=== PATIENT | female | born 1965 | race Caucasian/White ===

== ENCOUNTER 2019-04-12 21:38 | Emergency (ER) | payer BC, MEDICAID ==
[~2019-04-12] VITALS: Ht 160 cm; Wt 54.4 kg
[2019-04-12 22:29] LABS: Basophils # (auto) 0 uL; Eosinophils # (auto) 0 uL; Hemoglobin 10.2 g/dL (12.2-16.2); Lymphocytes # (auto) 1.1 uL; Monocytes # (auto) 0.2 uL; Neutrophils # (auto) 2.2 uL; Nucleated Red Blood Cells % 0.1 %; White Blood Cell 3.5 10^3/uL (4.4-10.8)
[2019-04-12 22:32] LABS: Basophils % (auto) 0.9 % (0.0-2.0); Eosinophils % (auto) 0.8 % (0.0-7.0); Hematocrit 34.6 % (36.0-46.0); Lymphocytes % (auto) 30.8 % (10.0-50.0); Mean Corpuscular Hemoglobin 23.1 pg (28.0-32.0); Mean Corpuscular Hgb Conc. 29.5 g/dL (32.0-36.0); Mean Corpuscular Volume 78.4 fL (80.0-100.0); Monocytes % (auto) 4.4 % (0.0-12.0); Neutrophils % (auto) 63.1 % (37.0-80.0); Platelet Count (auto) 330 10^3/uL (140-450); Red Blood Cells 4.42 10^6/uL (4.0-5.20)
[2019-04-12 22:42] LABS: Red Cell Distribution Width 31.1 % (11.8-14.3)
[2019-04-12 22:44] LABS: Urine Bacteria MANY /hpf (None Seen); Urine Blood Negative /uL (Negative); Urine Specific Gravity 1.014 (1.001-1.035); Urine WBC 1 /hpf (0 - 5)
[2019-04-12 22:47] LABS: Albumin 2.9 g/dL (3.4-5.0); Calcium 7.2 mg/dL (8.5-10.1); Potassium 3.9 mmol/L (3.5-5.1)
[2019-04-12 22:48] LABS: BUN/Creatinine Ratio 17.3
[2019-04-12 22:52] LABS: Bilirubin, Total 0.3 mg/dL (0.2-1.0); Total Protein 6.3 g/dL (6.4-8.2)
[2019-04-12 22:55] LABS: Alcohol, Urine < 3.0 mg/dL (0-5); Amphetamine Screen, Urine NEGATIVE (NEGATIVE); Barbiturate Scree,Urine NEGATIVE (NEGATIVE); Benzodiazephine Screen, Urine POSITIVE (NEGATIVE); Cannabinoid Screen, Urine POSITIVE (NEGATIVE); Cocaine Screen, Urine NEGATIVE (NEGATIVE); Opiate Scree,Urine NEGATIVE (NEGATIVE); Phencyclidine Screen, Urine NEGATIVE (NEGATIVE)
[2019-04-13] MEDS ORDERED: LORazepam 0.5 MG TAB PO ONE (04:00)
[2019-04-13] MEDS ORDERED: MORPHINE SULF INJ 2 MG/ML SYRINGE 1ML IV ONE (04:00)
[2019-04-13] MEDS ORDERED: SODIUM CHLORIDE 0.9% 1,000 ML IV ONE (04:00)
[2019-04-13 04:55] VITALS: BP 107/71
[2019-04-13 04:55] LABS: Lipase 61 U/L (73-393)
[2019-04-13] MEDS ORDERED: CALCIUM ACETATE 667 MG CAP PO ONE (06:00)
== END 2019-04-13 07:44 | disposition home or self-care (01) ==
LOC: EDBD 21:38 → ER 21:44
DX: F41.9 Anxiety disorder, unspecified (principal); K59.00 Constipation, unspecified; Z90.710 Acquired absence of both cervix and uterus
CPT/HCPCS: 36415; 74176; 80053; 80307; 81001; 83690; 84484; 85025; 93005; 94761; 96374; 99284; J2270; J7030

== ENCOUNTER 2019-06-29 20:43 | Emergency (ER) | payer BC, MEDICAID ==
[~2019-06-29] VITALS: Ht 170.2 cm; Wt 63.5 kg
[2019-06-30] MEDS ORDERED: KETOROLAC TROMETH 60MG/2ML VIAL IM ONE (08:15)
[2019-06-30 08:51] VITALS: BP 113/73
== END 2019-06-30 09:01 | disposition home or self-care (01) ==
LOC: EDBD 20:43 → ER 20:50
DX: M54.5 Low back pain (principal); K21.9 Gastro-esophageal reflux disease without esophagitis; Z90.710 Acquired absence of both cervix and uterus
CPT/HCPCS: 72128; 72131; 96372; 99284; J1885

== ENCOUNTER 2019-11-01 13:31 | Emergency (ER) | payer MEDICAID ==
[~2019-11-01] VITALS: Ht 160 cm; Wt 55.3 kg
[2019-11-01 13:59] VITALS: BP 98/54
[2019-11-01] MEDS ORDERED: ONDANSETRON ODT 4 MG TAB PO ONE (15:30)
[2019-11-01] MEDS ORDERED: KETOROLAC TROMETH 60MG/2ML VIAL IM ONE (15:30)
[2019-11-01] MEDS ORDERED: METHOCARBAMOL 500 MG TAB PO ONE (15:30)
== END 2019-11-01 16:09 | disposition home or self-care (01) ==
LOC: EDBD 13:31 → ER 13:31 → EDUNIT# 13:31 → ER 16:09
DX: M54.5 Low back pain (principal); G89.29 Other chronic pain; K21.9 Gastro-esophageal reflux disease without esophagitis
CPT/HCPCS: 96372; 99283; J1885; Q0162

== ENCOUNTER 2020-01-24 03:32 | Inpatient (IN) | payer MEDICAID ==
[~2020-01-24] VITALS: Ht 165.1 cm; Wt 59.4 kg
[2020-01-24] MEDS ORDERED: SODIUM CHLORIDE 0.9% 2,000 ML IV ONE (04:00)
[2020-01-24 05:08] LABS: Basophils # (auto) 0.1 10 ^3/uL (0-0.2); Basophils % (auto) 1.6 % (0.0-2.0); Eosinophils # (auto) 0 10 ^3/uL (0-0.8); Eosinophils % (auto) 0.4 % (0.0-7.0); Hematocrit 33.4 % (36.0-46.0); Hemoglobin 10.6 g/dL (12.2-16.2); Lymphocytes # (auto) 0.5 10 ^3/uL (0.4-5.4); Lymphocytes % (auto) 7.9 % (10.0-50.0); Mean Corpuscular Hemoglobin 29.1 pg (28.0-32.0); Mean Corpuscular Hgb Conc. 31.7 g/dL (32.0-36.0); Mean Corpuscular Volume 91.8 fL (80.0-100.0); Monocytes # (auto) 0.3 10 ^3/uL (0-1.3); Monocytes % (auto) 3.9 % (0.0-12.0); Neutrophils # (auto) 5.6 10 ^3/uL (1.6-8.6); Neutrophils % (auto) 86.2 % (37.0-80.0); Nucleated Red Blood Cells % 0.1 %; Platelet Count (auto) 365 10^3/uL (140-450); Red Blood Cells 3.64 10^6/uL (4.0-5.20); Red Cell Distribution Width 15.7 % (11.8-14.3); White Blood Cell 6.5 10^3/uL (4.4-10.8)
[2020-01-24 05:12] LABS: Urine Bacteria FEW /hpf (None Seen); Urine Blood Negative /uL (Negative); Urine Hyaline Cast FEW /lpf (0 - 2); Urine Mucus FEW (None Seen); Urine Specific Gravity 1.016 (1.001-1.035); Urine WBC 1 /hpf (0 - 5)
[2020-01-24 05:22] LABS: INR 1.39 (0.9-1.15)
[2020-01-24 05:27] LABS: Anion Gap 12 (5-15); Blood Alcohol < 3.0 mg/dL (0-5); Blood Urea Nitrogen 13 mg/dL (7-18); Calcium 7.2 mg/dL (8.5-10.1); Carbon Dioxide 16 mmol/L (21-32); Chloride 115 mmol/L (98-107); Glucose 93 mg/dL (74-106); Magnesium 2.5 mg/dL (1.6-2.6); Sodium 143 mmol/L (136-145)
[2020-01-24 05:33] LABS: Alanine Aminotransferase 22 U/L (13-56); Alkaline Phosphatase 482 U/L (45-117); Aspartate Aminotransferase 22 U/L (15-37); BUN/Creatinine Ratio 32.5; Bilirubin, Total 0.3 mg/dL (0.2-1.0); GFR African American 212 mL/min; GFR Non-African American 175 mL/min; Total Protein 6.7 g/dL (6.4-8.2)
[2020-01-24 05:35] LABS: Alcohol, Urine < 3.0 mg/dL (0-5); Amphetamine Screen, Urine POSITIVE (NEGATIVE); Barbiturate Scree,Urine NEGATIVE (NEGATIVE); Benzodiazephine Screen, Urine POSITIVE (NEGATIVE); Cannabinoid Screen, Urine NEGATIVE (NEGATIVE); Cocaine Screen, Urine NEGATIVE (NEGATIVE); Opiate Scree,Urine NEGATIVE (NEGATIVE); Phencyclidine Screen, Urine NEGATIVE (NEGATIVE)
[2020-01-24 05:36] LABS: Acetaminophen < 2.0 ug/mL (10-30); Salicylate 1.9 mg/dL (2.8-20.0)
[2020-01-24 05:37] LABS: Potassium 2.9 mmol/L (3.5-5.1)
[2020-01-24] MEDS: VANCOMYCIN 1GM/250ML 250 ML IV ONE ×2 (06:15→06:58)
[2020-01-24] MEDS ORDERED: ONDANSETRON HCL 4 MG/2 ML VIAL IV PRN (07:00)
[2020-01-24] MEDS ORDERED: DEXTROSE (50%) 50ML SYRG IV PRN (07:00)
[2020-01-24] MEDS ORDERED: TEMAZEPAM 15 MG CAP PO PRN (07:00)
[2020-01-24] MEDS ORDERED: MORPHINE SULF INJ 2 MG/ML SYRINGE 1ML IV PRN (07:00)
[2020-01-24] MEDS ORDERED: NITROGLYCERIN 0.4 MG SL TAB SL PRN (07:00)
[2020-01-24] MEDS ORDERED: IOHEXOL 350 MG/ML 100ML IJ ONE (07:02)
[2020-01-24] MEDS ORDERED: PIPERACILLIN-TAZOB 3.375GM 100 ML IV ONE (07:30)
[2020-01-24] MEDS ORDERED: POTASSIUM CHL 20MEQ/100ML 100 ML IV ONE (08:30)
[2020-01-24] MEDS: SOD CHL 0.9%/ KCL 20MEQ 1,000 ML IV SCH ×2 (08:57→21:21)
[2020-01-24] MEDS: ACETAMINOPHEN 325 MG TAB PO PRN (09:04)
[2020-01-24] MEDS: CITALOPRAM HYDROBR 20 MG TAB PO SCH (10:00)
--- NOTE | 2020-01-24 10:12 | NUR ---
Pt Arrived On Unit Pt arrived on unit via stretcher from ED. Pt is a/ox3-4; mild periods of confusion. Mild muscle tremors noted. Pt has alves in place, draining to gravity and free of kinks. Safety measures maintained with call light within reach, bed in lowest position and side rails up. Will continue to monitor.
[2020-01-24 10:14] VITALS: BP 89/61
[2020-01-24] MEDS: levoFLOXacin 500MG 100 ML IV SCH (10:55)
[2020-01-24] MEDS: FAMOTIDINE 20 MG TAB PO SCH ×2 (10:55→21:20)
[2020-01-24 11:00] VITALS: BP 89/61
[2020-01-24] MEDS: InsuLIN REG 1unit/0.01ml Soln (100units/ml) SC SCH ×3 (11:44→23:46)
[2020-01-24] MEDS: ACCU-CHEK COMFORT CURVE STRIP VI SCH ×3 (11:44→23:46)
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
[2020-01-24] MEDS ORDERED: EST0625T PO (12:40)
[2020-01-24] MEDS ORDERED: CITA-73 PO (12:40)
[2020-01-24] MEDS ORDERED: BUPR100T14 PO (12:40)
[2020-01-24] MEDS ORDERED: OMEP20TA PO (12:40)
[2020-01-24] MEDS ORDERED: HYDR-4833 PO (12:40)
[2020-01-24] MEDS ORDERED: ALPR1TAB7 PO (12:40)
[2020-01-24] MEDS ORDERED: DOCU1CAP46 PO (12:40)
[2020-01-24] MEDS ORDERED: BACL10TA PO (12:40)
[2020-01-24] MEDS ORDERED: MIRT1TAB38 PO (12:40)
[2020-01-24] MEDS ORDERED: CLOT1CRE13 TOP (12:40)
[2020-01-24] MEDS ORDERED: METO10TA3 PO (12:40)
[2020-01-24] MEDS ORDERED: IBUP200C3 PO (12:40)
[2020-01-24] MEDS ORDERED: ONDA-155 PO (12:40)
[2020-01-24] MEDS ORDERED: DIPH25CA6 PO (12:40)
--- NOTE | 2020-01-24 12:40 | NUR ---
Wound Pictures Wound pictures taken for reference.
[2020-01-24 12:53] VITALS: BP 90/59
--- NOTE | 2020-01-24 15:45 | NUR ---
WOUND CARE NOTE: Wound care in to see patient per wound care request regarding "skin tears to both extremities" that are noted present on admission. Bedside nurse took photograph of patient's wounds upon admission for reference. Patient is 54 years old female with admitting diagnosis of Toxic Encephalopathy, Pna. Patient with history of Anemia,Depression, GERD. Patient is resting in bed in Rm. 288B. Patient is awake, alert and follow simple direction. Patient is in no stated pain at this time. She's self turning and repositioning. Her Jaylon score is 16.. Noted multiple open partial thickness skin tears to patient's L upper arm (1.2x2.0cm) and L forearm (1.0x0.6cm) and two skin tears to Rt forearm (0.8x0.5cm).Skin tears to Rt forearm and L upper arm are open and red. L forearm skin tear is clean, dry with thin scab, no drainage/odor noted. Patient's bilateral arm has scattered ecchymosis. On reports, patient tripped and fell at home at her garage. Cleansed patient's skin tears with NS, patted dry with gauze, apply Thera honey gel and covered with Opti foam gentle dressing. No other wound noted, no pressure injury noted. Patient tolerated well. Bed in low position, call starr within reach with all safety precautions in placed. No further wound care monitoring needed at this time. RECOMMENDATION: Nursing to continue with Q3Days/PRN dressing change to multi skin tear per MD order, Dietary consult, reconsult for active wound, pressure injury, Jaylon score of 12 and below. Addendum: 01/24/20 at 1753 by Monet Garrett RN Amended: Links added.
[2020-01-24 16:54] VITALS: BP 105/73
--- NOTE | 2020-01-24 20:00 | NUR ---
Opening Shift Note Assumed care of patient, awake and orientated times 3. No S/S of distress/SOB or pain. Instructed on POC and to call for assist PRN, will continue to monitor for changes Q1hr and PRN. bed in low position call light within reach. bed alarm on / bed in low position. Fall precautions in place.
[2020-01-24 22:00] VITALS: BP 117/82
[2020-01-25 05:00] VITALS: BP 134/75
[2020-01-25] MEDS: ACCU-CHEK COMFORT CURVE STRIP VI SCH ×3 (05:39→17:11)
[2020-01-25] MEDS: InsuLIN REG 1unit/0.01ml Soln (100units/ml) SC SCH ×3 (05:39→17:11)
[2020-01-25 05:58] LABS: Basophils # (auto) 0 10 ^3/uL (0-0.2); Basophils % (auto) 0.9 % (0.0-2.0); Eosinophils # (auto) 0.1 10 ^3/uL (0-0.8); Hemoglobin 9.6 g/dL (12.2-16.2); Lymphocytes % (auto) 24.9 % (10.0-50.0); Mean Corpuscular Hgb Conc. 31.9 g/dL (32.0-36.0); Mean Corpuscular Volume 90.9 fL (80.0-100.0); Monocytes # (auto) 0.3 10 ^3/uL (0-1.3); Monocytes % (auto) 8.6 % (0.0-12.0); Neutrophils # (auto) 2.6 10 ^3/uL (1.6-8.6); Neutrophils % (auto) 63.6 % (37.0-80.0); Nucleated Red Blood Cells % 0.1 %; Platelet Count (auto) 357 10^3/uL (140-450); Red Cell Distribution Width 15.4 % (11.8-14.3); White Blood Cell 4.1 10^3/uL (4.4-10.8)
[2020-01-25 06:27] LABS: Potassium 3.5 mmol/L (3.5-5.1)
[2020-01-25 06:36] LABS: Albumin 2.4 g/dL (3.4-5.0); BUN/Creatinine Ratio 12.5; Bilirubin, Total 0.4 mg/dL (0.2-1.0); Calcium 6.8 mg/dL (8.5-10.1); Total Protein 5.9 g/dL (6.4-8.2)
--- NOTE | 2020-01-25 07:25 | NUR ---
rEPORT GIVEN TO DAYSHIFT RN PATIENT DENIES SOB DISTRESS OR PAIN
--- NOTE | 2020-01-25 07:45 | NUR ---
Opening Note Assumed pt care from NOC RN. Pt is a/ox4 with no s/s of distress or SOB. Pt is currently sitting upright in bed with no complaints at this time. Brennan is draining to gravity and free of kinks. Discussed POC with pt; pt verbalized understanding. Safety measures maintained with call light within reach, bed in lowest position, side rails up and bed alarm on. Will continue to monitor.
[2020-01-25 09:00] VITALS: BP 109/77
[2020-01-25] MEDS: FAMOTIDINE 20 MG TAB PO SCH ×2 (09:03→22:21)
[2020-01-25] MEDS: CITALOPRAM HYDROBR 20 MG TAB PO SCH (09:03)
[2020-01-25] MEDS: levoFLOXacin 500MG 100 ML IV SCH (09:03)
--- NOTE | 2020-01-25 11:28 | NUR ---
Dr Hitchcock at Bedside MD to see pt. Plans to d/c pt to SNF. MD stated that she would speak with long term care social worker. MD requested SNF placement paperwork. Will implement and continue to monitor.
[2020-01-25] MEDS: ACETAMINOPHEN 325 MG TAB PO PRN (11:29)
[2020-01-25] MEDS: SOD CHL 0.9%/ KCL 20MEQ 1,000 ML IV SCH (11:52)
[2020-01-25 13:00] VITALS: BP 103/69
--- NOTE | 2020-01-25 13:40 | NUR ---
Nutrition Assessment Notes Please refer to link for full assessment notes. Est energy needs: 6120-9336 kcals (23-25 kcal/kgBW) Est protein needs: 65-71 gms/day (1.0-1.1 gm/kgBW) Will continue to monitor and reassess prn. Addendum: 01/25/20 at [address] Amended: Links added. Addendum: 01/25/20 at [address] Additiion Recommendation: Consider a Regular diet in lieu of current diet order
--- NOTE | 2020-01-25 15:23 | NUR ---
assessment Patient is a 54 year old female who is alert and oriented. Prior to admission patient lived home with family and functioned with assistance since her hip surgery 2 months ago. Patient informed me she is needing rehab to get back to her prior functioning. Jeanne DELONG will satisfy order. Patient agrees to SNF local or [facility]. Patient informed me her PCP is Dr Granados. Patient has a fww for home use. I informed patient she has a right to speak to a 7th grade social studies teacher regarding all care. I informed patient she has a right to participate in any and all discharge planning. Patient does not have a POA and advanced directive. I have offered patient information on POA and advanced directives. I informed the patient the advantages and benefits of having an Advanced Directive. Patient verbalized understanding and agreed to discharge plan to SNF. Addendum: 01/25/20 at 1533 by Luz BRAVO Amended: Links added.
--- NOTE | 2020-01-25 17:05 | NUR ---
D/C Planning Per SS consult for SNF placement. F[facility]ed clinical information to [facility] Representatives with [facility] are unable to accommodate patient needs. Per Akua with [facility] she does not have a female bed today but is willing to accept patient tomorrow Tuesday01/26/2020. Faxed Clinical information to [facility]. Per Perico with [facility] physical therapy notes are not clear and she needs more information stating patient is participating with physical therapy. Perico advised me a new Physical therapy evaluation needs to be completed in order to determine if patient meets criteria. Informed LICO Hurt.
--- NOTE | 2020-01-25 19:36 | NUR ---
Opening Shift Note Assumed care of patient, awake and alert. No S/S of distress/SOB or pain. Instructed on POC and to call for assist PRN, will continue to monitor for changes Q1hr and PRN. bed in low position call light within reach. fall precautions in place
[2020-01-25 22:00] VITALS: BP 115/70
[2020-01-26] MEDS: ACCU-CHEK COMFORT CURVE STRIP VI SCH ×4 (00:13→17:54)
[2020-01-26] MEDS: SOD CHL 0.9%/ KCL 20MEQ 1,000 ML IV SCH ×2 (00:14→11:41)
[2020-01-26 05:00] VITALS: BP 126/72
[2020-01-26] MEDS: InsuLIN REG 1unit/0.01ml Soln (100units/ml) SC SCH ×4 (05:48→17:54)
--- NOTE | 2020-01-26 07:20 | NUR ---
report given to dayshift rn patient shows no signs of sob distress or pain
--- NOTE | 2020-01-26 07:21 | NUR ---
Opening Shift Note: Assumed care of patient, awake and alert. No S/S of distress/SOB or pain. Bed in lowest locked position, side rails up x 2, call light within reach. Bed alarm activated for patient safety. Patient instructed on POC and to call for assist PRN, will continue to monitor for changes Q1hr and PRN.
[2020-01-26 08:40] VITALS: BP 100/67
[2020-01-26] MEDS: levoFLOXacin 500MG 100 ML IV SCH (09:33)
[2020-01-26] MEDS: CITALOPRAM HYDROBR 20 MG TAB PO SCH (09:33)
[2020-01-26] MEDS: ACETAMINOPHEN 325 MG TAB PO PRN ×2 (09:34→21:43)
[2020-01-26] MEDS: FAMOTIDINE 20 MG TAB PO SCH ×2 (09:34→21:41)
--- NOTE | 2020-01-26 09:34 | NUR ---
PAIN Patient states pain level 5/10. No medications available in pain range. Patient request Tylenol for pain. Tylenol 650 MG given. Will reassess pain.
[2020-01-26] MEDS ORDERED: AZITHROMYCIN 250 MG TAB PO ONE (11:15)
[2020-01-26 12:42] VITALS: BP 103/71
--- NOTE | 2020-01-26 13:23 | NUR ---
Paged senior online marketing manager fast food services manager at this time regarded pending placement for patient. Awaiting call back.
--- NOTE | 2020-01-26 13:46 | NUR ---
Spoke with social media developer Luz regarding patient placement. Per Luz "we are waiting for physical therapy report before patient can be transferred." Will attempt to reach physical therapy regarding report.
[2020-01-26 17:00] VITALS: BP 137/84
--- NOTE | 2020-01-26 19:21 | NUR ---
CLOSING NOTE: Patient resting in bed. NO S/S of distress or SOB at this time. Care endorsed to NOC RN.
--- NOTE | 2020-01-26 19:50 | NUR ---
Opening Shift Note Assumed care of patient, awake, AAOx4. On room air and bedrest. No S/S of distress/SOB. Patient C/O pain to back 03/26. Bed in lowest locked position, side rails up x2, call light within reach. Brennan catheter patent and draining to gravity. Instructed on POC and to call for assist PRN, will continue to monitor for changes Q1hr and PRN.
--- NOTE | 2020-01-26 21:43 | NUR ---
C/O PAIN PATIENT PAIN LEVEL 5/10 TO LOWER BACK. PATIENT REQUESTED TYLENOL. ADMINISTERED MEDICATION. WILL CONTINUE TO MONITOR.
[2020-01-26 22:00] VITALS: BP 114/67
[2020-01-27] MEDS: ACCU-CHEK COMFORT CURVE STRIP VI SCH ×4 (00:19→18:13)
[2020-01-27] MEDS: SOD CHL 0.9%/ KCL 20MEQ 1,000 ML IV SCH ×2 (01:40→18:13)
[2020-01-27 05:00] VITALS: BP 140/80
[2020-01-27] MEDS: InsuLIN REG 1unit/0.01ml Soln (100units/ml) SC SCH ×4 (06:00→18:00)
--- NOTE | 2020-01-27 07:18 | NUR ---
Opening Shift Note: Assumed care of patient. Patient asleep at this time. No S/S of distress/SOB or pain. Respirations even and unlabored. Bed in lowest locked position, side rails up x 2, call light within reach. Patient will be instructed on POC and to call for assist PRN, will continue to monitor for changes Q1hr and PRN.
[2020-01-27 09:00] VITALS: BP 115/77
[2020-01-27 09:21] LABS: Basophils # (auto) 0.1 10 ^3/uL (0-0.2); Eosinophils # (auto) 0.1 10 ^3/uL (0-0.8); Eosinophils % (auto) 2.4 % (0.0-7.0); Hematocrit 34.1 % (36.0-46.0); Hemoglobin 10.5 g/dL (12.2-16.2); Lymphocytes # (auto) 0.9 10 ^3/uL (0.4-5.4); Mean Corpuscular Hemoglobin 27.6 pg (28.0-32.0); Mean Corpuscular Hgb Conc. 30.8 g/dL (32.0-36.0); Mean Corpuscular Volume 89.7 fL (80.0-100.0); Monocytes # (auto) 0.2 10 ^3/uL (0-1.3); Monocytes % (auto) 6.7 % (0.0-12.0); Neutrophils # (auto) 2.1 10 ^3/uL (1.6-8.6); Neutrophils % (auto) 61.9 % (37.0-80.0); Nucleated Red Blood Cells % 0.1 %; Platelet Count (auto) 380 10^3/uL (140-450); Red Cell Distribution Width 15.3 % (11.8-14.3); White Blood Cell 3.4 10^3/uL (4.4-10.8)
[2020-01-27 09:35] LABS: Calcium 7.4 mg/dL (8.5-10.1); Potassium 4.1 mmol/L (3.5-5.1)
[2020-01-27] MEDS: AZITHROMYCIN 250 MG TAB PO SCH (09:47)
[2020-01-27] MEDS: FAMOTIDINE 20 MG TAB PO SCH ×2 (09:47→22:20)
[2020-01-27] MEDS: CITALOPRAM HYDROBR 20 MG TAB PO SCH (09:47)
[2020-01-27] MEDS: ACETAMINOPHEN 325 MG TAB PO PRN (09:48)
--- NOTE | 2020-01-27 09:48 | NUR ---
PAIN Patient states pain level 6/10. Patient request Tylenol for pain. Will continue to monitor.
--- NOTE | 2020-01-27 10:48 | NUR ---
Physical therapy Spoke with KAVYA Rea about report. Spoke with rn social services to update them on report.
[2020-01-27 13:00] VITALS: BP 134/81
--- NOTE | 2020-01-27 13:31 | NUR ---
DR DANIELA Wong at bedside. Discussed POC with patient patient verbally agreed
[2020-01-27] MEDS: HYDROcodone-ACET 5/325MG TAB PO PRN ×2 (14:12→22:21)
[2020-01-27] MEDS: ALPRAZolam 0.5 MG TAB PO PRN (14:12)
--- NOTE | 2020-01-27 14:12 | NUR ---
PAIN Patient states pain level 6/10 at this time. Appropriate pain medications given. Will reassess pain
--- NOTE | 2020-01-27 14:30 | NUR ---
PT DECLINED P.T. BECAUSE OF PAIN.
--- NOTE | 2020-01-27 15:12 | NUR ---
PAIN REASSESSMENT Patient states pain level 2/10. Per patient "pain is almost gone."
[2020-01-27 17:00] VITALS: BP 127/75
--- NOTE | 2020-01-27 18:08 | NUR ---
Patient refused dressing change at this time. Educated patient on frequency of dressing change. Patient states " I would rather wait until later, after dinner and my bed bath." Will attempt again.
--- NOTE | 2020-01-27 19:06 | NUR ---
CLOSING NOTE: Patient asleep in bed. NO S/S of pain, distress or SOB at this time. Care endorsed to NOC RN.
--- NOTE | 2020-01-27 19:50 | NUR ---
Opening Shift Note Assumed care of patient, awake, AAOx4. On room air and bedrest. No S/S of distress/SOB. Bed in lowest locked position, side rails up x2, call light within reach. Brennan catheter patent and draining to gravity. Instructed on POC and to call for assist PRN, will continue to monitor for changes Q1hr and PRN.
[2020-01-27 21:59] VITALS: BP 136/79
[2020-01-28] MEDS: ACCU-CHEK COMFORT CURVE STRIP VI SCH ×3 (00:32→12:00)
[2020-01-28] MEDS: SOD CHL 0.9%/ KCL 20MEQ 1,000 ML IV SCH (04:20)
[2020-01-28 04:57] VITALS: BP 128/75
[2020-01-28] MEDS: InsuLIN REG 1unit/0.01ml Soln (100units/ml) SC SCH ×3 (06:00→12:00)
[2020-01-28] MEDS: ALPRAZolam 0.5 MG TAB PO PRN ×2 (06:25→14:27)
[2020-01-28] MEDS: HYDROcodone-ACET 5/325MG TAB PO PRN ×2 (06:26→14:27)
[2020-01-28 06:27] LABS: Basophils # (auto) 0.1 10 ^3/uL (0-0.2); Eosinophils # (auto) 0.1 10 ^3/uL (0-0.8); Eosinophils % (auto) 3.2 % (0.0-7.0); Hematocrit 34.7 % (36.0-46.0); Hemoglobin 11.1 g/dL (12.2-16.2); Lymphocytes # (auto) 1.1 10 ^3/uL (0.4-5.4); Lymphocytes % (auto) 36.3 % (10.0-50.0); Mean Corpuscular Hemoglobin 28.9 pg (28.0-32.0); Mean Corpuscular Hgb Conc. 31.9 g/dL (32.0-36.0); Mean Corpuscular Volume 90.6 fL (80.0-100.0); Monocytes # (auto) 0.2 10 ^3/uL (0-1.3); Monocytes % (auto) 6.2 % (0.0-12.0); Neutrophils # (auto) 1.6 10 ^3/uL (1.6-8.6); Neutrophils % (auto) 52.3 % (37.0-80.0); Nucleated Red Blood Cells % 0.1 %; Platelet Count (auto) 347 10^3/uL (140-450); Red Blood Cells 3.83 10^6/uL (4.0-5.20); Red Cell Distribution Width 15.6 % (11.8-14.3); White Blood Cell 3.1 10^3/uL (4.4-10.8)
[2020-01-28 06:46] LABS: Calcium 7.4 mg/dL (8.5-10.1); Potassium 4.5 mmol/L (3.5-5.1)
[2020-01-28 06:49] LABS: BUN/Creatinine Ratio 16.3
--- NOTE | 2020-01-28 07:15 | NUR ---
Opening Shift Note: Assumed care of patient, awake and alert. No S/S of distress/SOB or pain. Bed in lowest locked position, side rail up x 2, call light within reach. Bed alarm activated for patient safety. Patient instructed on POC and to call for assist PRN, will continue to monitor for changes Q1hr and PRN.
[2020-01-28 08:00] VITALS: BP 131/78
[2020-01-28] MEDS: FAMOTIDINE 20 MG TAB PO SCH (09:46)
[2020-01-28] MEDS: CITALOPRAM HYDROBR 20 MG TAB PO SCH (09:46)
[2020-01-28] MEDS: AZITHROMYCIN 250 MG TAB PO SCH (09:47)
[2020-01-28 12:00] VITALS: BP 138/86
--- NOTE | 2020-01-28 14:27 | NUR ---
Alves catheter dc'd: Order to discontinue alves catheter. Alves dc'd with clean technique following deflation of balloon. Patient tolerated well with no complaints of pain. Continue care.
--- NOTE | 2020-01-28 14:50 | NUR ---
D/C Planning Faxed updated Physical Therapy notes to Perico with [facility]. Per Perico patient meets criteria for rehab and she with be authorizing for physical therapy. Authorization # [id number]. Placed followed up called to Akua with [facility]:). Per Akua patient has been accepted to room [address] Hermosillo. Faxed transportation form requesting for a 16:00 orange picker machine operator via [employer]. Per Jaimee with [facility] transportation has been arrange with [employer] [facility]:( [phone]) with a 16:00 orange picker machine operator. Informed LICO Mccormick. Addendum: 01/28/20 at 1456 by JOJO BRAVO Amended: Links added.
[2020-01-28 14:59] VITALS: BP 131/78
--- NOTE | 2020-01-28 15:30 | NUR ---
DISCHARGE WOUND PHOTOS TAKEN AT THIS TIME.
--- NOTE | 2020-01-28 15:51 | NUR ---
BOTH IV's DC'd AT THIS TIME. CATHETER INTACT, PRESSURE DRESSING APPLIED. PATIENT TOLERATED WELL.
--- NOTE | 2020-01-28 16:39 | NUR ---
Discharge instructions given as ordered. All questions and concerns addressed. Patient verbalized understanding. IV removed with catheter intact, pressure dressing applied, alves catheter removed. Medication reconciliation form completed and copy given to patient. Home medications held in Pharmacy returned to patient. Telemetry unit returned to ICU. Report given to ALFA at 1639. Patient transported by [employer] with all personal belongings. No distress noted at time of departure.
== END 2020-01-28 16:37 | DRG 812 ==
LOC: EDBD 03:32 → ER 03:35 → TELE 03:36 → TELE-WESTW 11:34
PROVIDERS: ADMIT Nurse Practitioner; ATTEND Internal Medicine Nephrology
DX: T43.621A Poisoning by amphetamines, accidental (unintentional), initial encounter (principal); G92 Toxic encephalopathy; E44.0 Moderate protein-calorie malnutrition; D68.9 Coagulation defect, unspecified; J47.0 Bronchiectasis with acute lower respiratory infection; G35 Multiple sclerosis; E87.6 Hypokalemia; T73.0XXA Starvation, initial encounter; E16.2 Hypoglycemia, unspecified; D64.9 Anemia, unspecified; K21.9 Gastro-esophageal reflux disease without esophagitis; F32.9 Major depressive disorder, single episode, unspecified; Z90.710 Acquired absence of both cervix and uterus; W01.0XXA Fall on same level from slipping, tripping and stumbling without subsequent striking against object, initial encounter; Y93.89 Activity, other specified; Y92.038 Other place in apartment as the place of occurrence of the external cause; Y99.8 Other external cause status; J21.9 Acute bronchiolitis, unspecified
CPT/HCPCS: 36415; 36600; 70450; 71045; 71275; 73502; 80048; 80053; 80307; 80320; 80329; 81001; 82010; 82805; 82962; 83036; 83605; 83735; 83880; 84443; 84484; 85025; 85379; 85610; 85730; 87040; 87086; 93005; 96361; 96365; 96367; 97116; 97530; G0378; J1956; J2543; J3480